=== PATIENT | female | born 1960 | race Caucasian/White ===

== ENCOUNTER 2020-09-07 09:17 | Outpatient (CLI) | payer OTHER, SELFPAY ==
--- NOTE | ~2020-09-07 | MM_ITS ---
EXAMINATION: MM screening sarahi BI w jaziel HISTORY: Screening mammogram TECHNIQUE: Craniocaudal and mediolateral oblique 3-D tomosynthesis images were obtained and synthetic 2-D images were generated. CAD analysis was submitted and interpreted. COMPARISON: No prior mammogram is available for comparison at this institution. BREAST PARENCHYMAL COMPOSITION: There are scattered areas of fibroglandular density. FINDINGS: RIGHT BREAST: Focal asymmetry is present in the posterior third of the upper outer quadrant of the br east. LEFT BREAST: There is no evidence of suspicious mass, calcification, or architectural distortion to s uggest malignancy. IMPRESSION: 1. Right breast focal asymmetry which may represent the patient's baseline however no comparison is c urrently available. 2. Comparison with prior mammograms is necessary. BI-RADS Category 0: Incomplete: Needs comparison with prior mammograms. Reviewed, dictated and finalized at location A. IMPRESSION: 1. Right breast focal asymmetry which may represent the patient's baseline gudino tani no comparison is currently available. 2. Comparison with prior mammograms is necessary. BI-RADS Category 0: Incomplete: Needs comparison with prior mammograms.
== END 2020-09-07 09:18 | disposition home or self-care (01) ==
LOC: ANHIMG 09:23
PROVIDERS: PCP Family Medicine Adolescent Medicine; Visit Provider Obstetrics & Gynecology
DX: Z12.31 Encounter for screening mammogram for malignant neoplasm of breast (principal); R92.8 Other abnormal and inconclusive findings on diagnostic imaging of breast
CPT/HCPCS: 77063; 77067

== ENCOUNTER 2021-12-16 07:47 | Outpatient (CLI) | payer OTHER, SELFPAY ==
--- NOTE | ~2021-12-16 | MM_ITS ---
EXAMINATION: MM screening sarahi BI w jaziel HISTORY: Screening TECHNIQUE: Craniocaudal and mediolateral oblique 3-D tomosynthesis images were obtained and synthetic 2-D images were generated. CAD analysis was submitted and interpreted. COMPARISON: Comparison to multiple prior studies sequentially, with oldest reviewed study dated 12/2016. BREAST PARENCHYMAL COMPOSITION: There are scattered areas of fibroglandular density. FINDINGS: Bilateral breast asymmetries are stable. There is no evidence of suspicious mass, calcifica tion, or architectural distortion to suggest malignancy in either breast. There has been no suspiciou s interval change. IMPRESSION: 1. No mammographic evidence of malignancy. 2. Recommend routine screening mammography in one year. BI-RADS Category 1: Negative Reviewed, dictated and finalized at location A.
== END 2021-12-16 07:48 | disposition home or self-care (01) ==
PROVIDERS: PCP Family Medicine Adolescent Medicine; Visit Provider Obstetrics & Gynecology
DX: Z12.31 Encounter for screening mammogram for malignant neoplasm of breast (principal)
CPT/HCPCS: 77063; 77067

== ENCOUNTER 2022-09-02 09:49 | Outpatient (CLI) | payer OTHER, SELFPAY ==
--- NOTE | ~2022-09-02 | US_ITS ---
Thyroid ultrasound. Clinical History: Thyroid nodule Findings: Real-time sonography of the thyroid gland was performed. The right lobe measures 4.9 x 2.4 x 2.8 cm. The left lobe measures 4.7 x 2.3 x 1.6 cm. The isthmus is 4 mm in AP diameter. There is a dominant right thyroid lobe nodule, solid, mildly hypoechoic, measuring 3.6 x 1.9 x 1.8 cm . There is also a mildly hypoechoic solid dominant left thyroid lobe nodule, measuring 2.9 x 1.4 x 2. 1 cm. Impression: 3.6 cm right thyroid lobe nodule, and 2.9 cm left thyroid lobe nodule. Both these lesions are consist ent with TR-4 lesions, and given size, FNA is recommended to establish a histologic diagnosis.. Reviewed, dictated and finalized at [facility]. Impression: 3.6 cm right thyroid lobe nodule, and 2.9 cm left thyroid lobe nodule. Both the se lesions are consistent with TR-4 lesions, and given size, FNA is recommended to establish a histologic diagnosis..
== END 2022-09-02 09:50 | disposition home or self-care (01) ==
PROVIDERS: PCP Family Medicine Adolescent Medicine; Visit Provider Internal Medicine
DX: E05.90 Thyrotoxicosis, unspecified without thyrotoxic crisis or storm (principal); E04.2 Nontoxic multinodular goiter
CPT/HCPCS: 76536

== ENCOUNTER 2022-09-19 06:43 | Outpatient (CLI) | payer OTHER, SELFPAY ==
--- NOTE | ~2022-09-19 | NM_ITS ---
EXAMINATION: NM thyroid scan w uptake DATE: 09/20/2022 09:10 INDICATION: Thyroid nodule. COMPARISON: Ultrasound 09/02/2022 TECHNIQUE: 0.493 mCi I-123 was administered orally. Scintigraphic images of the thyroid gland were o btained at 24 hours. Thyroid uptake was calculated by the technologist. FINDINGS: The thyroid uptake is 39% (normal 10-30%), with the right lobe measuring 23% uptake and the left 17%. There is no focal area of decreased or increased activity to suggest hypofunctioning or hyperfunctio spike nodule. IMPRESSION: 1. Increased 24-hour iodine uptake, consistent with hyperthyroidism. 2. The nodules seen on the prior ultrasound are isoactive. Ultrasound-guided fine-needle aspiration o f 2 nodules is recommended. Reviewed, dictated and finalized at location A. IMPRESSION: 1. Increased 24-hour iodine uptake, consistent with hyperthyroidism. 2. The nodules seen on the prior ultrasound are isoactive. Ultrasound-guided fi ne-needle aspiration of 2 nodules is recommended.
== END 2022-09-19 06:44 | disposition home or self-care (01) ==
LOC: ANHIMG 06:47
PROVIDERS: PCP Family Medicine Adolescent Medicine; Visit Provider Internal Medicine
DX: E04.1 Nontoxic single thyroid nodule (principal); R94.6 Abnormal results of thyroid function studies
CPT/HCPCS: 78014; A9516

== ENCOUNTER 2022-10-14 09:01 | Outpatient (CLI) | payer OTHER, SELFPAY ==
--- NOTE | ~2022-10-14 | US_ITS ---
EXAMINATION: 1. US FNA w image guidance 2. US FNA additional DATE: 10/14/2022 09:52 INDICATION: Thyroid nodules. TECHNIQUE: The procedure and its benefits and risks were discussed with the patient. Risks specifically discusse d included bleeding. The patient verbalized understanding of the risks and agreed to proceed. The nec k was prepped and draped in the usual sterile manner. 1% lidocaine was used for local anesthesia. 5 passes were made with a 25G needle into the lesion in right thyroid lobe under ultrasound guidance. 5 passes were made with a 25-gauge needle into the lesion in left thyroid lobe under ultrasound milena nce. There were no immediate complications. FINDINGS: Grayscale ultrasound images demonstrate needles advanced into a 3.6 cm nodule in right thyroid lobe f or biopsy. Grayscale ultrasound images demonstrate needles advanced into a 2.8 cm nodule in left thyr oid lobe for biopsy. IMPRESSION: 1. Ultrasound-guided fine needle aspiration of a right thyroid nodule. 2. Ultrasound-guided fine-needle aspiration of a left thyroid nodule. Reviewed, dictated and finalized at location A. IMPRESSION: 1. Ultrasound-guided fine needle aspiration of a right thyroid nodule. 2. Ultrasound-guided fine-needle aspiration of a left thyroid nodule.
== END 2022-10-14 09:02 | disposition home or self-care (01) ==
PROVIDERS: PCP Family Medicine Adolescent Medicine; Visit Provider Internal Medicine
DX: R91.8 Other nonspecific abnormal finding of lung field (principal)
CPT/HCPCS: 10005; 10006; 88173; 88305

== ENCOUNTER 2022-11-24 11:02 | Outpatient (CLI) | payer OTHER, SELFPAY ==
--- NOTE | 2022-11-24 11:24 | ECG_ITS ---
Measurements Intervals [place] Rate: 73 P: 51 OR: 194 QRS: 29 QRSD: 101 T: 52 QT: 375 QTc: 414 Interpretive Statements SINUS RHYTHM NO PREVIOUS ECG AVAILABLE FOR COMPARISON Electronically Signed On 11-24-2022 14:05:39 CDT by Bria Solares M.D.
== END 2022-11-24 11:03 | disposition home or self-care (01) ==
PROVIDERS: PCP Family Medicine Adolescent Medicine; Visit Provider Orthopaedic Surgery
DX: M17.11 Unilateral primary osteoarthritis, right knee (principal); I10 Essential (primary) hypertension
CPT/HCPCS: 93005

== ENCOUNTER 2023-01-04 14:00 | Outpatient (CLI) | payer OTHER, SELFPAY ==
[2023-01-04 15:18] LABS: INR 0.9; Partial Thromboplastin Time 28.6 SECONDS (22.3-36.8); Prothrombin Time 12.9 Seconds (11.1-14.7)
[2023-01-04 17:09] LABS: Urine Cotinine NEGATIVE
== END 2023-01-04 14:01 | disposition home or self-care (01) ==
LOC: ANHSURGERY 14:03
PROVIDERS: PCP Family Medicine Adolescent Medicine; Visit Provider Orthopaedic Surgery
DX: Z01.812 Encounter for preprocedural laboratory examination (principal); M17.11 Unilateral primary osteoarthritis, right knee
CPT/HCPCS: 80307; 83036; 85610; 85730; 87081

== ENCOUNTER 2023-01-18 00:45 | Day surgery (SDC) | payer OTHER, SELFPAY ==
[2023-01-04 08:12] VITALS: BMI 39.9
[2023-01-04 14:09] VITALS: BMI 39.9
--- NOTE | 2023-01-04 14:28 | PC.NURSE ---
Report to the Outpatient Waiting Room, entrance under the green pavilion located off [facility], at time __0600 on date __01/18/23 . Planned Procedure Time: _0730 . Time changes happen often and if your time is changed the preop area will call you the afternoon before. - You and your visitor will be asked to self-screen and do not enter if you have any COVID symptoms. - A mask is optional within the hospital at this time. Patients may have clear liquids (water, carbonated beverages, clear teas, apple juice) until 3 hours prior to surgery with a maximum of 20 ounces. - No food from midnight until time of surgery - Infants may have breast milk until 4 hours before surgery, formula 6 hours prior to surgery. - Children will be allowed to drink immediately following surgery. If applicable, please bring a bottle or sippy cup to assist with drinking. Juice, water, soda, and popsicles are readily available. For infants on formula, please bring formula the day of surgery. Pacifiers are allowed. Take the following medications with a SIP of water the morning of surgery: ___AMLODIPINE ATENOLOL,METHIMAZOLE,HYDROCODONE IF NEEDED FOR PAIN DO NOT STOP ANY OF YOUR OTHER PRESCRIPTION MEDICATIONS PRIOR TO SURGERY ?EXCEPT THE FOLLOWING Medications to discontinue per physician ___WEGOVY HOLD 10 DAYS PRE OP PER ANESTHESIA. LAST DOSE 01/02/23__ALL VITAMINS/SUPPLEMENTS 3 DAYS PRE OP.LAST DOSE 01/14/23 Please no make-up, nail argentine, hairspray, perfume, deodorant, or body powder the day of surgery. No jewelry (including any body piercings) or valuables the day of surgery, leave them at home. Please take a shower or bath the night before, or the morning of, surgery with an antibacterial soap. Wear comfortable, loose fitting clothing. Children are encouraged to wear pajamas. - Jewelry must be removed prior to entering the operating room. Rings and piercings that are not removed may be cut off. - The hospital will not accept responsibility for valuables. - Please leave all valuables, including medications, at home the day of surgery. If you are going home after surgery, a licensed ambulance driver must drive you home. - NO public transportation without another adult if you receive anesthesia. - We recommend that an adult stay with you for 24 hours following discharge. - We also recommend that you do not drive, make important decision, drink alcoholic beverages, or take any drugs that were not prescribed by your health care provider for at least 24 hours after your discharge time. For Pediatric surgeries, we recommend two adults accompany the child home. Follow any additional instructions given to you from your surgeon. If you or anyone in your household have experienced Covid symptoms in the past week, please notify your surgeon or the nurse liaison at the phone number below for possible testing. VERBAL AND WRITTEN instructions given to __PATIENT and asked if any additional questions and then verbalized understanding. Patient advised to call surgeon office or pre surgery nurse liaison [phone] if any additional questions.
[2023-01-04 14:43] VITALS: BP 150/74; PULSE 78; RESP 18; TEMP 36.7; O2SAT 98; BMI 39.9
[2023-01-18] VITALS (13 sets, daily range): BP systolic 111–167; BP diastolic 54–81; PULSE 66–99; RESP 12–18; TEMP 36.1–36.8; O2SAT 94–100
--- NOTE | ~2023-01-18 | XR_ITS ---
EXAMINATION: [id number] DATE: 01/18/2023 12:00 INDICATION: Total right knee arthroplasty. Postop. TECHNIQUE: 2 views of right knee were obtained. COMPARISON: Right knee radiographs 09/20/2022 FINDINGS: There is a total right knee arthroplasty without patellar resurfacing in near-anatomic alig nment. There has been resection of patellar osteophytes. There is gas in the joint and soft tissues, consistent with recent surgery. Anterior skin musa are noted. IMPRESSION: 1. Total right knee arthroplasty in near-anatomic alignment. Reviewed, dictated and finalized at location A.
[2023-01-18] MEDS: ACETAMINOPHEN 500 MG TABLET 1000 MG PO (06:20)
[2023-01-18] MEDS: LACTATED RINGERS 1,000 ML 30 ML IV CONT ×2 (06:35→11:50)
[2023-01-18] MEDS: TRANEXAMIC ACID 1,000MG/ISO100 1,000 MG/100 ML BAG 200 MG IVPB (07:00)
--- NOTE | 2023-01-18 07:16 | WPDANESEPPF ---
Anes - Initial Pre Proc Eval Procedure: Operation Date: 01/18/23 07:30 Proposed Procedures p Right Total Knee Arthroplasty - Luis Huerta MD Date/Time: 01/18/23 07:16 Surgeon: Luis Huerta MD Pre Op Diagnosis: right knee djd Patient Data Age: 62 Gender: F Height: 1.68 m Weight: 109.4 kg Last Vital Signs Temp 36.1 C L 01/18/23 06:56 Pulse 68 01/18/23 06:56 Resp 16 01/18/23 06:56 BP 167/71 H 01/18/23 06:56 Pulse Ox 98 01/18/23 06:56 O2 Del Method Room Air 01/18/23 06:56 Allergies Allergy/AdvReac Type Severity Reaction Status Date / Time Sulfa (Sulfonamide Allergy Mild RASH/SOB Verified 01/18/23 06:16 Antibiotics) levofloxacin Allergy Unknown Dyspnea / Verified 01/18/23 06:16 SOB sulfanilamide Allergy Unknown rash Verified 01/18/23 06:16 Home Medications Medication Instructions Recorded Confirmed Type ondansetron 4 mg disintegrating 4 mg PO Q8H PRN nausea and 06/29/22 01/18/23 Rx tablet vomiting #20 tabs furosemide 20 mg tablet 20 mg PO QAM PRN edema #30 tabs 07/14/22 01/18/23 Rx meclizine 25 mg tablet 25 mg PO QID PRN dizziness #30 tabs 10/03/22 01/18/23 Rx atenolol 100 mg tablet 100 mg PO DAILY #90 tabs 11/01/22 01/18/23 Rx magnesium 250 mg tablet 250 mg PO DAILY 11/22/22 01/18/23 History methimazole 5 mg tablet 2.5 mg PO DAILY #90 tabs 11/22/22 01/12/23 Rx amlodipine 2.5 mg tablet (Norvasc) 2.5 mg PO DAILY #90 tabs 12/19/22 01/18/23 Rx semaglutide (weight loss) 2.4 2.4 mg (0.75 mL) subcut WEEKLY #3 12/19/22 01/18/23 Rx mg/0.75 mL subcutaneous pen mL injector (Wegovy) lidocaine 4 % topical patch 1 patch topical TID PRN Pain 01/04/23 01/18/23 History (Lidocaine Pain Relief) melatonin 5 mg tablet 5 mg PO HS PRN Insomnia 01/04/23 01/18/23 History chlorhexidine gluconate 4 % 1 applic topical ONCE #237 mL 01/05/23 01/18/23 Rx topical liquid (Hibiclens) hydrocodone 5 mg-acetaminophen 325 1 tablet PO Q8H PRN pain #30 tabs 01/09/23 01/18/23 Rx mg tablet Patient hx anesthesia problems: none Family hx anesthesia problems: none Results Review: All pre-operative results and documents have been reviewed as part of the pre-operative evaluation. 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 Osteoarthritis of knees, bilateral Thyroid nodule Unilateral primary osteoarthritis, right knee Surgical History Surgical History History of breast lump/mass excision History of 1996 History of hernia repair 1999 History of hysterectomy 2004 History of total knee arthroplasty left, 02/2015 Family History Family History Other Diabetes mellitus Family history of arthritis Hypertension Social History Social History Smoking packs per day: 0.5 Smoking cigarettes per day: 10.0 Years smoked: 10 Smoking pack-years: 5.00 Smoking status: Former smoker Tobacco type: cigarettes Second hand tobacco smoke exposure: No Smoking end date: 06/12/87 Additional smoking assessment comments: DENIES ANY FORM OF TOBACCO USE Alcohol intake: current Drinks per week: 2 Alcohol use details: socially Substance use: current Other substance usage details: THC Gummys ocassionally Lack of Transportation: No Lack of Food: Never True Current Housing: I Have Housing Concerned About Future Housing: No Difficulty Paying Gas/Electric Bills: No Difficulty Paying for Meds: No Currently Unemployed: No Education: [employer]
--- NOTE | 2023-01-18 07:22 | WPDHPUPDATE1 ---
History and Physical Update Update Date/Time: 01/18/23 07:22 History and Physical has been reviewed, including an updated exam of the patient. There are NO changes in the patient's condition. Risks, benefits, and alternatives have been discussed and questions answered. Patient agrees to proceed with procedure.
--- NOTE | 2023-01-18 07:38 | WPDANESPNB ---
Anes - Peripheral Nerve Block Date/Time: 01/18/23 07:38 I have discussed with the patient/family/POA the placement of a peripheral nerve block for post-operative pain management, including associated risks, benefits, complications, and side effects. Alternative methods of post-operative analgesia were detailed. Questions were solicited and answers provided to the satisfaction of the patient/family/POA. Time-Out: A pre-procedural Time-Out was completed immediately before starting the procedure and confirmed: Patient Identification, Site, Procedure, Patient Position and the Availability of Requisite Equipment. Clinical Indications: Acute post-operative pain management requested by the operative surgeon. Nerve Block Insertion Note Anes-nerve block: adductor canal right Patient position: supine Skin prep: chlorhexidine Needle: 22 gauge, stimulating, insulated echogenic needle. Needle length: 80 mm Technique: ultrasound Technique comment: mid2mg [id number] Injectate: bupivacaine 0.5% with epi 5 mcg/ml (30ml) Observations: tolerated well Complications: none Procedure start time:: 726 Procedure end time:: 733
[2023-01-18] MEDS: ceFAZolin 2 GM/D5W 50 ML 2 GM/50 ML BAG IVPB ×3 (07:41→23:11)
[2023-01-18] MEDS: GENTAMICIN BONE CEMENT REFOBACIN 1 EACH TOPICAL (10:17)
[2023-01-18] MEDS: TRANEXAMIC ACID 1,000 MG/10 ML AMPUL 1000 MG IV PUSH (10:40)
--- NOTE | 2023-01-18 12:27 | P.OP_ITS ---
Procedure Note - Detailed Date of Procedure 01/18/23 Pre-op Diagnosis right knee djd Post-op Diagnosis Same Procedure Performed R TKA Surgeon Luis Huerta MD Anesthesia General Description of Procedure THE RIGHT KNEE WAS PREPPED AND DRAPED IN THE STERILE FASHION. THERE WAS A 20 DEGREE FLEXION CONTRACTURE AND 25 DEG VALGUS DEFORMITY. THERE WAS SIGNIFICANT LAXITY OVER THE MEDIAL SIDE WITH VALGUS STRESS. A MIDLINE SKIN INCISION WAS MADE. A MEDIAL PARAPATELLAR ARTHROTOMY WAS MADE. THE PATELLA WAS EVERTED. THERE WAS TRICOMPARTMENT DJD. THE DECISION WAS MADE TO USE A PS KNEE WITH STEMS TO ENSURE STABILITY. AN INTRAMEDULLARY MAX WAS PLACED IN THE FEMUR. A DISTAL FEMORAL CUT WAS MADE IN 5 DEGREES OF VALGUS REMOVING APPROXIMATELY 11 MM OF BONE FROM THE DISTAL FEMUR. THE FEMUR WAS SIZED TO 67.5. A 67.5 FEMORAL CUTTING BLOCK WAS PLACED IN 3 DEGREES OF EXTERNAL ROTATION AND IN ALIGNMENT WITH BRYCE'S LINE AND THE TRANSEPICONDYLAR AXIS. ANTERIOR POSTERIOR AND CHAMFER CUTS WERE MADE. A BOX CUT WAS MADE FOR THE PS KNEE AND THE FEMUR WAS REAMED TO ACCOMMODATE A FEMORAL STEM. THE CUTS WERE EXCELLENT. NEXT AN INTRAMEDULLARY CUTTING GUIDE WAS PLACED IN THE TIBIA. A TRANS TIBIAL CUT WAS MADE ALONG THE LONG AXIS OF THE TIBIA. APPROXIMATELY 10 MM OF BONE WAS REMOVED FROM THE HIGH SIDE OF THE TIBIA. THE TIBIA WAS THEN PLANED TO A SMOOTH SURFACE. A PUNCH AND REAMER WERE USED TO PREPARE THE TIBIA FOR A TIBIAL STEM. POSTERIOR FEMORAL OSTEOPHYTES WERE REMOVED FROM THE FEMORAL CONDYLES. A 75 TIBIAL TRIAL WITH STEM WAS PLACED IN ALIGNMENT WITH THE 1/3 MEDIAL ASPECT OF THE TIBIAL TUBERCLE. THEN A 67.5 FEMORAL TRIAL PS WITH STEM COMPONENT WAS PLACED. BOTH HAD EXCELLENT FITS. EVENTUALLY A 12 MM PS POLYETHYLENE TRIAL COMPONENT WAS PLACED. THE KNEE WAS TAKEN THROUGH A RANGE OF MOTION. THE KNEE CAME OUT TO FULL EXTENSION. THERE WAS NO ABNORMAL TILT TO THE PATELLA. THERE WAS GOOD A/P AND VARUS/VALGUS STABILITY. THERE WAS NO EXCESSIVE ROLL BACK WITH FLEXION. THE TRIAL COMPONENTS WERE REMOVED. THEN A 67.5 FEMORAL COMPONENT WITH AN 80 MM STEM AND 75 TIBIAL COMPONENT WITH A 12 PS POLYETHYLENE COMPONENT WERE CEMENTED INTO PLACE. ONCE THE CEMENT WAS HARD THE KNEE WAS TAKEN THROUGH A ROM AGAIN AND FOUND TO BE STABLE WITH NO PATELLA TILT NO EXCESSIVE ROLL BACK WITH FLEXION AND GOOD STAB ILITY WITH COMPLETE AND FULL EXTENSION. THE KNEE WAS IRRIGATED WITH STERILE BETADINE AND WATER FOR ABOUT 3 MINUTES. THE BLEEDERS WERE CAUTERIZED. THE ARTHROTOMY WAS REPAIRED WITH NUMBER 1 VICRYL. THE SUB CUTANEOUS LAYER WITH 2-0 VICRYL AND THE SKIN WITH ELADIO. THE WOUND WAS WASHED AND A STERILE DRESSING WAS APPLIED. PATIENT WAS EXTUBATED. Estimated Blood Loss -150.0 Pathology None sent Complications No immediate complications Condition Stable Disposition PACU
[2023-01-18] MEDS: KETOROLAC 30 MG/ML VIAL (*BKC) IV PUSH (12:28)
--- NOTE | 2023-01-18 12:40 | SUR.PHASEI ---
Vancomycin ended at 1230.
--- NOTE | 2023-01-18 13:50 | ADMGEN ---
This patient, Rhina Hall, was admitted to Medical Room 343-01. Patient/family oriented to hospital policies and general routines including ID bracelet, bed and alarms, visiting hours, pain management, procedures, bathroom and other care routines, personal items, smoking policy, room service/diet, and visiting hours. Information on how to activate the Rapid Response Team has been discussed. Patient/Family are encouraged to report perceived risks to care and to ask questions if they do not understand what they are told or what they should do.
[2023-01-18] MEDS: oxyCODONE/ACETAMINOPHEN (*CRX) 5-325 MG TABLET 2 TABLET PO (14:14)
[2023-01-18] MEDS: SODIUM CHLORIDE 0.9% IV 1,000 ML 125 ML IV CONT (14:15)
[2023-01-18] MEDS: KETOROLAC 15 MG/ML VIAL (*BKC) IV PUSH ×2 (17:44→23:11)
[2023-01-18] MEDS: SENNA/DOCUSATE SODIUM TABLET 2 TAB PO (17:44)
[2023-01-18] MEDS: ASPIRIN 325 MG ENTERIC TABLET PO (20:12)
[2023-01-18] MEDS: FAMOTIDINE 20 MG TABLET PO (20:12)
[2023-01-18] MEDS: oxyCODONE/ACETAMINOPHEN (*CRX) 5-325 MG TABLET 1 TABLET PO (21:44)
[2023-01-19 00:42] VITALS: BP 142/54; PULSE 79; RESP 16; TEMP 36.2; O2SAT 97
[2023-01-19 04:07] VITALS: BP 146/56; PULSE 90; RESP 16; TEMP 36.2; O2SAT 99
[2023-01-19 05:53] LABS: Basophils Percent Auto 0.2 % (0.2-1.2); Eosinophils Percent Auto 0.1 % (0-4.4); Hematocrit 33.2 % (37.0-47.0); Hemoglobin 10.5 g/dL (12.0-15.0); Immature Granulocyte Absolute 0.04 K/mm3 (0.00-0.031); Immature Granulocyte Percent A 0.3 % (0-0.5); Lymphocytes Absolute Auto 1.64 K/mm3 (0.9-3.2); Lymphocytes Percent Auto 13.7 % (18.3-44.2); Mean Corpuscular HGB Conc 31.6 g/dl (32-36); Mean Corpuscular Hemoglobin 28.2 pg (26-34); Mean Platelet Volume 8.8 fl (7.4-10.4); Monocytes Absolute Auto 1.6 K/mm3 (0.1-0.6); Neutrophils Absolute Auto 8.7 K/mm3 (1.3-6.7); Neutrophils Percent Auto 72.7 % (45.5-73.1); Platelet Count Result 201 k/mm3 (150-375); Red Blood Count 3.73 M/mm3 (4.2-5.4); Red Cell Distribution Width 12.1 % (11.5-14.5)
[2023-01-19] MEDS: KETOROLAC 15 MG/ML VIAL (*BKC) IV PUSH ×2 (06:01→12:03)
[2023-01-19] MEDS: oxyCODONE/ACETAMINOPHEN (*CRX) 5-325 MG TABLET 1 TABLET PO ×2 (06:02→15:02)
[2023-01-19] MEDS: ceFAZolin 2 GM/D5W 50 ML 2 GM/50 ML BAG IVPB (06:03)
[2023-01-19 06:05] LABS: Anion Gap 4 mmol/L (8-16); Blood Urea Nitrogen 19 mg/dL (7-17); Carbon Dioxide 28 mmol/L (22-30); Chloride 101 mmol/L (98-107); Estimated CRCL calculation 105 ml/min; Estimated Glomerular Filt Rate > 60; Glucose 121 mg/dL (65-110); Potassium 4.1 mmol/L (3.4-5.0); Sodium 133 mmol/L (137-145)
[2023-01-19 08:02] VITALS: PULSE 88
[2023-01-19] MEDS: amLODIPine BESYLATE 2.5 MG TABLET PO (08:02)
[2023-01-19] MEDS: atenoloL 50 MG TABLET 100 MG PO (08:02)
[2023-01-19] MEDS: polyethylene glycoL 3350 17 GM POWD.PACK PO (08:03)
[2023-01-19] MEDS: ASPIRIN 325 MG ENTERIC TABLET PO (08:03)
[2023-01-19] MEDS: SENNA/DOCUSATE SODIUM TABLET 2 TAB PO (08:03)
[2023-01-19] MEDS: FAMOTIDINE 20 MG TABLET PO (08:03)
[2023-01-19] MEDS: MAGNESIUM 13.5 MG TABLET (250 MG MAG GLUCONATE) PO (08:03)
[2023-01-19 09:11] VITALS: O2SAT 97
[2023-01-19 14:19] VITALS: BP 134/46; PULSE 85; RESP 18; TEMP 36.2; O2SAT 97
--- NOTE | 2023-01-19 15:08 | WPDANESPN ---
Anes - Prog Note Post-Op Date/Time: 01/19/23 15:08 Cardiovascular status: normal Respiratory status: normal Airway patency: baseline Mental status: baseline Post-Op hydration status: normal Vital Signs: Last Vital Signs Temp 36.2 C L 01/19/23 14:19 Pulse 85 01/19/23 14:19 Resp 18 01/19/23 14:19 BP 134/46 L 01/19/23 14:19 Pulse Ox 97 01/19/23 14:19 O2 Del Method Room Air 01/19/23 09:11 O2 Flow Rate 2 01/18/23 13:00 Pain Score (VAS): 08/19 I/O: Intake & Output 01/18/23 01/19/23 01/19/23 23:59 07:59 15:59 Intake Total 460 350 720 Balance 460 350 720 Laboratory Tests 01/19/23 05:47 01/19/23 05:47 01/19/23 05:47 WBC 12.0 H RBC 3.73 L Hgb 10.5 L Hct 33.2 L MCV 89.0 MCH 28.2 MCHC 31.6 L RDW 12.1 Plt Count 201 MPV 8.8 Immature Gran % (Auto) 0.3 Neut % (Auto) 72.7 Lymph % (Auto) 13.7 L Mcminn % (Auto) 13.0 H Eos % (Auto) 0.1 Baso % (Auto) 0.2 Lymph # (Auto) 1.64 Mcminn # (Auto) 1.6 H Eos # (Auto) 0.0 Baso # (Auto) 0.0 Abs Immat Gran (auto) 0.04 H Absolute Neuts (auto) 8.7 H Absolute Nucleated RBC 0.0 Nucleated RBC % 0.0 Sodium 133 L Potassium 4.1 Chloride 101 Carbon Dioxide 28 Anion Gap 4 L BUN 19 H Creatinine 0.60 L Estim Creat Clear Calc 105 Estimated GFR > 60 Glucose 121 H Calcium 8.0 L Post-procedural complaints: none Patient Feedback: Patient satisfied with anesthetic care.
--- NOTE | 2023-01-19 16:02 | PM.DS ---
DS: Admitting Diagnosis Discharge Date 01/19/23 Admitting Diagnosis right knee djd DS: Discharge Diagnosis Discharge Diagnosis (1) Unilateral primary osteoarthritis, right knee: Code(s): M17.11 - Unilateral primary osteoarthritis, right knee Status: Acute Assessment and Plan: pod 1 doing well. ok to dc home f/u in 3 weeks. asa for dvt prophylaxis DS: Summary Hospital Course Reason for hospitalization: R TKA Hospital Course: PATIENT WAS ADMITTED S/P TOTAL KNEE ARTHROPLASTY FOR POSTOPERATIVE MEDICAL MANAGEMENT, PAIN CONTROL AND MOBILIZATION WITH PHYSICAL AND OCCUPATIONAL THERAPY. THE PATIENT PROGRESSED WELL WITH PT/OT. LABS AND VITALS REMAINED STABLE AND PAIN WELL CONTROLLED. THE PATIENT HAS BEEN CLEARED TO BE DISCHARGED HOME. FOLLOW UP APPOINTMENT SCHEDULED. DISCHARGE INSTRUCTIONS DISCUSSED AT LENGTH WITH THE PATIENT. MEDICATIONS REVIEWED. 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, [place] INTACT NEG HOMANS SIGN, CALF AND THIGH SOFT DS: Data Data Completed and Pending Labs on day of discharge: Labs from last 24 hours 01/19/23 05:47 WBC 12.0 H RBC 3.73 L Hgb 10.5 L Hct 33.2 L MCV 89.0 MCH 28.2 MCHC 31.6 L RDW 12.1 Plt Count 201 MPV 8.8 Immature Gran % (Auto) 0.3 Neut % (Auto) 72.7 Lymph % (Auto) 13.7 L Faulkner % (Auto) 13.0 H Eos % (Auto) 0.1 Baso % (Auto) 0.2 Lymph # (Auto) 1.64 Faulkner # (Auto) 1.6 H Eos # (Auto) 0.0 Baso # (Auto) 0.0 Abs Immat Gran (auto) 0.04 H Absolute Neuts (auto) 8.7 H Absolute Nucleated RBC 0.0 Nucleated RBC % 0.0 Sodium 133 L Potassium 4.1 Chloride 101 Carbon Dioxide 28 Anion Gap 4 L BUN 19 H Creatinine 0.60 L Estim Creat Clear Calc 105 Estimated GFR > 60 Glucose 121 H Calcium 8.0 L Procedures/Treatments: R TKA Discharge Plan Discharge Patient Disposition: Home Health Service Discharge Instructions: Per Care Coordination Patient has been accepted to have [facility] for RN, PT, [phone]. Home Health is scheduled to see patient in her home on MondayJan 22 and will call to arrange a time for Home Health visit. YUNIOR HUERTA M.D. [facility] [address] [place] [address] POST OPERATIVE DISCHARGE INSTRUCTIONS FOLLOWING TOTAL KNEE REPLACEMENT SURGERY ? Your dressing will be changed prior to your discharge. You will be sent home with one additional dressing to be changed on post op day 7 by the home health RN. Your musa will be removed on the 14th day after surgery and steri-strips will be placed. Please practice good hand hygiene and do not touch your incision in order to prevent infection. ? You may shower with your dressing but do not submerge in a bath tub. ? Do not drive or operate machinery until you are released by Dr. Huerta. ? Do not walk without a walker for any reason until you are released by Dr. Huerta. ? Continue to use your ice machine. Please use a towel or pillow case to protect your skin before applying your ice machine. ? Do NOT place a pillow under your knee. You may use a pillow from the calf down if needed. This will prevent a flexion contracture postoperatively. ? You may begin use of your CPM machine at home if you have been given one pre-operatively. DO NOT USE WHILE YOU ARE SLEEPING. ? Your first post op appointment was sent to you via mail preoperatively. If you have any questions or are unable to make your appointment, please contact our office for scheduling questions. ? Your medications have been sent to your pharmacy. You have been sent home with pain medication. We have also sent you with a stool softener as narcotics can cause constipation. Please keep this in mind arlene
== END 2023-01-19 16:53 | disposition home health service (06) ==
LOC: ANHSURGERY 06:03 → ANH3MED 13:42
PROVIDERS: PCP Family Medicine Adolescent Medicine; Visit Provider Orthopaedic Surgery
PROC: (CPT 27447; principal; 2023-01-18 07:30)
DX: M17.11 Unilateral primary osteoarthritis, right knee (principal); G89.18 Other acute postprocedural pain; E04.1 Nontoxic single thyroid nodule; G47.00 Insomnia, unspecified; I10 Essential (primary) hypertension; Z87.891 Personal history of nicotine dependence; E66.9 Obesity, unspecified; Z68.38 Body mass index [BMI] 38.0-38.9, adult
CPT/HCPCS: 64447; 27447; 36415; 73560; 80048; 80307; 83036; 85025; 85610; 85730; 86850; 86900; 86901; 87081; 97110; 97116; 97161; 97165; 97530; 97535; A9270; C1713; C1776; J0171; J0690; J1100; J1170; J1885; J2250; J2270; J2405; J2704; J2795; J3010; J3370; J7030; J7120

== ENCOUNTER 2023-07-18 07:12 | Outpatient (CLI) | payer OTHER, SELFPAY ==
--- NOTE | ~2023-07-18 | MM_ITS ---
EXAMINATION: MM screening sarahi BI w jaziel HISTORY: Screening mammogram TECHNIQUE: Craniocaudal and mediolateral oblique 3-D tomosynthesis images were obtained and synthetic 2-D images were generated. CAD analysis was submitted and interpreted. COMPARISON: 12/16/2021, 09/07/2020 bilateral screening mammogram examinations BREAST PARENCHYMAL COMPOSITION: There are scattered areas of fibroglandular density. FINDINGS: There is no evidence of suspicious mass, calcification, or architectural distortion to sugg est malignancy in either breast. There has been no suspicious interval change. IMPRESSION: 1. No mammographic evidence of malignancy. 2. Recommend routine screening mammography in one year. BI-RADS Category 1: Negative Reviewed, dictated and finalized at location A. [facility]
== END 2023-07-18 07:13 | disposition home or self-care (01) ==
PROVIDERS: PCP Family Medicine Adolescent Medicine; Visit Provider Obstetrics & Gynecology
DX: Z12.31 Encounter for screening mammogram for malignant neoplasm of breast (principal)
CPT/HCPCS: 77063; 77067

== ENCOUNTER 2023-07-21 12:29 | Outpatient (CLI) | payer OTHER, SELFPAY ==
--- NOTE | ~2023-07-21 | US_ITS ---
EXAMINATION: US FNA w image guidance, US FNA additional DATE: 07/21/2023 14:28 INDICATION: Bilateral thyroid nodules TECHNIQUE: A time-out was performed to verify the patient's name, date of , and procedure to be performed . The procedure and its benefits and risks were discussed with the patient. Risks specifically discus sed included bleeding and infection. The patient understood the risks and agreed to proceed. The neck was prepped and draped in the usual sterile manner. Attention was first turned to the left thyroid n odule. 5 mL 1% lidocaine was used for local anesthesia. 8 passes were made with a 25G needle into th e lesion. Appropriate needle location was documented with continuous sonographic guidance. Attention was then turned to the right thyroid nodule. 5 mm 1% lidocaine was used for local anesthesia. 6 pass es were made with a 25G needle and 1 pass with a 23G needle into the lesion. Appropriate needle locat ion was recommended with continuous sonographic guidance. Sterile bandages were applied. There were no immediate complications. FINDINGS: Grayscale ultrasound images demonstrate biopsy needles advanced into first a 2.8 x 1.2 x 2.0 cm solid hypoechoic left thyroid nodule and subsequently a similar appearing 2 2.8 cm TI RADS 4 .8 x 2.0 x 1. 8 cm solid hypoechoic right thyroid nodule. IMPRESSION: 1. Successful ultrasound-guided fine needle aspiration of a 2.8 cm TI RADS 4 left thyroid nodule. 2. Successful ultrasound-guided fine-needle aspiration of a 3.6 cm TI RADS 4 right thyroid nodule. Reviewed, dictated and finalized at location A. 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 Successful ultrasound-guided fine needle aspiration of a 2.8 cm TI RADS 4 l eft thyroid nodule. 2. Successful ultrasound-guided fine-needle aspiration of a 3.6 cm TI RADS 4 ri ght thyroid nodule.
== END 2023-07-21 12:30 | disposition home or self-care (01) ==
PROVIDERS: PCP Family Medicine Adolescent Medicine; Visit Provider Internal Medicine
DX: E04.2 Nontoxic multinodular goiter (principal)
CPT/HCPCS: 10005; 10006; 88172; 88173; 88305

== ENCOUNTER 2024-08-14 08:47 | Outpatient (CLI) | payer OTHER, SELFPAY ==
--- NOTE | ~2024-08-14 | MM_ITS ---
EXAMINATION: MM screening sarahi BI w jaziel HISTORY: Screening mammogram TECHNIQUE: Craniocaudal and mediolateral oblique 3-D tomosynthesis images were obtained and synthetic 2-D images were generated. CAD analysis was submitted and interpreted. COMPARISON: 07/18/2023, 12/16/2021 BREAST PARENCHYMAL COMPOSITION:Not Dense. The breasts are almost entirely fatty FINDINGS: Stable area of distortion at the upper right breast. No suspicious mass, calcification, or architectural distortion are identified in either breast to suggest malignancy. There has been no kulwant picious interval change. IMPRESSION: No mammographic evidence of malignancy. Recommend routine screening mammography in one year. BI-RADS Category 2: Benign finding(s). Reviewed, dictated and finalized at location . NESS RISK CONSULTANT
--- OUTSIDE RECORDS SUMMARY | 2024-08-14 09:12 | XMS_ITS | Clinical Summary ---
Author Organization [facility] Address [address] [address] Care Team Providers Care Cyber Security Specialist Name Role Phone Jh Lacy MD Primary Care Prov ider Allergies Active Allergy Reactions Criticality Noted Date Comments Ciprofloxacin Rash Medium 03/11/2019 Levofloxacin Shortness of breath High 03/11/2019 Sulfa (Sulfonamide Antibiotics) Rash Medium 02/12 Medications atenolol (TENORMIN) 50 mg tablet 50 mg daily Active hydroCHLOROthiaz jamaal (HYDRODIURIL) 25 mg tablet Take 25 mg by mouth daily as needed 3 02/11/2019 Active Active Problems No known active problems Surgical History Surgery Date Site/Laterality Comments LA EXC CYST/ABERRANT BREAST TISSUE OPEN 1/> LESION LAPAROSCOPIC TOTAL HYSTERECTOMY 06/12/2006 - 06/11/2007 menorrhagia LIPOSUCTION TRUNK 12/11/2019 - 01/10/2020 LIPOSUCTION TRUNK 01/11/2020 - 02/10/2020 HERNIA REPAIR SECTION Medical History Medical History Date Comments Asthma Family History Medical History Relation Name Comments Heart disease Father Family history of cardiac disorder - (Added by TW Conv) Hypertension Father Family history of hypertension - (Added by TW Conv) Heart disease Mother Family history of cardiac disorder - (Added by TW Conv) Hypertension Mother Family history of hypertension - (Added by TW Conv) Relation Name Status Comments Father Mother Social History Tobacco Use Types Packs/Day Years Used Date Smoking Tobacco: Former Comments No Sex and Gender Information Value Date Recorded Sex Assigned at Not on file Legal Sex 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 Gender Identity Not on file Sexual Orientation Not on file Obstetrics History Para Term AB IAB SAB Ectopic Multiple Livin g Live Births 2 1 1 Date Outcome GA Total Labor Labor/2nd/3rd Weight Sex Type Anes PTL [place] A1 A5 Name Clin Term Last Filed Vital Signs Vital Sign Reading Time Taken Comments Blood Pressure 134/80 04/01/2020 2:47 PM CDT Pulse 0 11/18/2015 9:45 AM CDT Temperature - - Respiratory Rate - - Oxygen Saturation 18% 02/20/2015 3:51 PM CDT Inhaled Oxygen Concentration - - Weight 104.3 kg (230 lb) 04/01/2020 2:47 PM CDT Height 177.8 cm (5' 10 ) 04/01/2020 2:47 PM CDT Body Mass Index 33 04/01/2020 2:47 PM CDT Plan of Treatment [place] [address] [facility] [place] [address] Care Teams Cyber Security Specialist Relationship Specialty Start Date End Date Jh Lacy MD [address] [place] [address] PCP - General 12/19/16
--- OUTSIDE RECORDS SUMMARY | 2024-08-14 09:12 | XMS_ITS | Data Portability ---
Author Organization [employer], [facility] Address [address] [address] Care Team Providers Care Siebel Solution Architect Name Role Phone KEO MARTINEZ Primary Care Provider Unavail able Assessment No assessment recorded. Plan of Treatment Reminders Order Date Submit Date Provider Last Modified By Organization Details Last Modified Time Details Appointments None recorded. Lab CBC w/ auto diff 020 020 [email or web address] Not available 0 12:24:46 vitamin D, 25-hydrox y, total, serum 020 020 [email or web address] Not available 0 12:24:46 testoster one, free, serum 020 020 [email or web address] Not available 0 12:24:46 testoster one, total, serum 020 020 [email or web address] Not available 0 12:24:46 Referral None recorded. Procedures None recorded. Surgeries None recorded. Imaging XR, knee - room 10 020 020 [email or web address] Not available 0 12:24:46 Medication Orders None recorded. Patient TargetsNo targets recorded. Patient InstructionsNo instructions recorded. Reason for Referral None Reported. Problems No Known Problems Procedures Surgical History Date Name Laterality Status Provider Name and Address Organization Details Recorded Time Joint Replacement completed Martha Garcia [facility] 08/02/2019 10:32:35 Caesarean Section completed Martha Applauze 08/02/2019 10:32:35 Knee Surgery completed Martha TAVAREZ [facility], [facility] 08/02/2019 10:32:35 Lumpectomy completed Martha [facility]Z [facility] 08/02/2019 10:32:35 Colonoscopy completed Martha TAVAREZ [facility], [facility] 08/02/2019 10:32:35 Orthopedic Surgery completed [facility] 08/02/2019 10:32:35 Imaging Results None recorded. Procedure Notes None recorded. Medical Equipment None Reported. Allergies Allergen ID Allergen Name Allergen Category Reaction Reaction Severity Criticality Documentation Date Start Date Code Code System Note Provider Name and Address Organization Details Recorded Time 98314 Substance with sulfonami de structure and antibacte rial mechanism of action (substanc e) medicatio n Not available Not available Not available 08/02/2019 15333 8003 SNOMED Martha Garcia [facility] [facility], [facility] 0 10:32:06 Medications Name Sig Start Date Stop Date Status Note LastModified by Organization Details LastModified Time cyclobenzaprine 10 mg tablet active Not Available Not Available No t Available trazodone 50 mg tablet active Not Available Not Available Not Available azithromycin 250 mg tablet active Not Available Not Available Not Available indapamide 2.5 mg tablet active Not Available Not Available Not Available benzonatate 200 mg capsule active Not Available Not Available Not Available atenolol 25 mg tablet active Not Available Not Available Not Available tramadol 50 mg tablet active Not Available Not Available Not Available ciclopirox 8 % topical solution active Not Available Not Avail able Not Available trazodone 100 mg tablet active Not Available Not Available Not Available cephalexin 500 mg capsule active Not Available Not Available Not Available trazodone 150 mg tablet active Not Available Not Available Not Available oseltamivir 75 mg capsule active Not Available Not Available Not Available hydrochlorothiazide 25 mg tablet active Not Available Not Available Not Available atenolol 50 mg tablet active Not Available Not Available Not Available Vitals Date Recorded Body height Body mass index (BMI) Body weight Heart rate Systolic blood pressure Diastolic blood pressure Provider Name and Address Organization Details Last Updated DateTime 0 175.26 cm 35.4 kg/m2 366977. 17 g 63 /min 149 mm[Hg] 81 mm[Hg] Martha Jesus [facility], [employer] [facility] [employer] 0 10:31:37 Social History Question Answer Notes LastModified by Organizat ion Details LastModified Time Tobacco Smoking Status Former Smoker Martha Garcia jo, [employer] [facility], [facility] 08/02/2019 10:32:27 What Is Your Level Of Alcohol Consumption? Occasional Information not available 08/02/2019 Auto Related Injury? No Information not available 08/02/2019 What Is Your Level Of Caffeine Consumption? Moderate Information not available 08/02/2019 How Much Tobacco Do You Chew? None Information not available 08/02/2019 Diabetes No Information no t available 08/02/2019 What Type Of Diet Are You Following? REGULAR Information not available 08/02/2019 Which Illicit Or Recreational Drugs Have You Used? No Information not available 08/02/2019 High Blood Pressure Yes Information not available 08/02/2019 High Cholesterol No Informat ion not available 08/02/2019 Marital Status Informatio n not available 08/02/2019 General Stress Level Medium Information not available 08/02/2019 Work Related Injury? No Information not available 08/02/2019 Sex: Unknown Functional Status Question Answer Note LastModified by Organization D etails LastModified Time What is your exercise level? Moderate Information not available 08/02/2019 Mental Status None recorded. Family History Relationship Description Onset Age of this Age Resolved Age Notes LastModified by Organization Details LastModified Time Maternal Grandmother Osteoporosis [email or web address] Not available 0 08/02/2019 10:32:12 Mother Hypertensive disorder ssnofke Not available 2019 10:32:12 Mother Diabetes mellitus ssnofke Not available 2019 10:32:12 Mother Heart disease ssnofke Not available 2019 10:32:12 Mother Obesity ssnofke Not available 0 08/02/2019 10:32:12 Father Arthritis ssnofke Not available 08/02/2019 10:32:12 Father Obesity ssnofke Not available 0 08/02/2019 10:32:12 Father Hypertensive disorder ssnofke Not available 2019 10:32:12 Maternal Grandfather Osteoporosis ssnofke Not available 0 08/02/2019 10:32:12 Brother Arthritis ssnofke Not availabl e 08/02/2019 10:32:12 Brother Hypertensive disorder ssnofke Not available 2019 10:32:12 Brother Obesity ssnofke Not available 08/02/2019 10:32:12 Sister Arthritis ssnofke Not available 08/02/2019 10:32:12 Sister Alzheimer's disease ssnofke Not available 2019 10:32:12 Sister Diabetes mellitus ssnofke Not available 2019 10:32:12 Sister Obesity ssnofke Not available 0 08/02/2019 10:32:12 Medical History Condition Response HIV or AIDS N Coronary Artery Disease N Gout N Kidney Stones N Hyperthyroidism N Head Trauma/Injury N Blood Clots N COPD N Depression N Anxiety Disorder N Arthritis Y Cancer N Stroke N Leg or Foot Ulcers N Neck Injury N Rheumatoid Arthritis N Fibromyalgia N Headaches N Kidney Disease N Heart Problems N Migraines N Ulcers N Bleeding Disorder N Tuberculosis N Urinary Tract Infection N Back Problems N Asthma N Peripheral Vascular Disease N Sleep Disorder N GERD/Reflux N Hepatitis N Thyroid Cancer N Pulmonary Embolism N Other Cancer N Breast Cancer N Hernia N Lung Cancer N Hypothyroidism N Lung Disease N Pacemaker N Kidney Cancer N High Cholesterol N Liver Disease N Prostate Cancer N Thyroid Problems N Anemia N Multiple Sclerosis N Heart Attack (RI) N Diabetes N Seizures/Epilepsy N Diverticulitis N Lupus N Aneurysm N Heart Disease N Hypertension Y Osteoporosis N Gynecological HistoryNo gynecological history recorded. Obstetrics History GPAL:G 0 P 0 0 0 0 Past Encounters Encounter ID Performer Location Encounter Start Date Encounter Closed Date Diagnosis/Indication Diagnosis SNOMED-CT Code Diagnosis ICD10 Code Diagnosis Note [id number] [facility] [address] [place] [address] 08/02/2019 10:15:14 08/02/2019 12:23:44 Knee pain 69365876 M25.561 Screening procedure 2012 5006 Z13.9 Z01.812 R53.83 M89.9 M94.9 E55.9 Health Concerns Section Related Observation LastModified by Organization Detai ls LastModified Time None Recorded Concern Status LastModified by Organization Details LastModified Time None Recorded Advance Directives Directive None Recorded Payers Encounter Date Sequence Insurance Name Policy Number Policy Huff Covered Member ID Huff Member ID Guarantor Name 08/02/2019 2 DEREJE (DEREJE) Rhnia Hall [id number] Rhina Hall 08/02/2019 1 [facility] [id number] Rhina Hall [id number] Rhina Hall Notes Date Note Type Note Provider Name and Address Organization Details Recorded Time 08/02/2019 text/html Pain Score Pain scale from 0-10, 10 being the worst 6 Chief Complaint Why are you here today? L knee When did the problem start 2 or more years Pain scale from 0-10, 10 being the worst 6 Over time is the problem getting better or worse? Worse Pain Description Aching Sharp Time of day when pain is at its worst Evening What makes the pain better? Rest Have you seen another doctor for this? Yes Name of the doctor Vikas Peoples Previous Methods Tried to Manage Pain Anti-inflammatory Medications Exercise Ice Physical therapy Rest Has patient ever had injections? Yes What Kind Of Injection(s) Cortisone Date of last injection 01/10/2015 Imported from [facility] on 08/02/2019 [facility] 08:45:22 OBGyn Episode No OBEpisode recorded.
--- OUTSIDE RECORDS SUMMARY | 2024-08-14 09:12 | XMS_ITS | Referral Summary ---
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 [place] [address] Care Teams Lei Seller Relationship Specialty Start Date End Date Jh Lacy MD [address] [place] [address] PCP - General 12/19/16
--- OUTSIDE RECORDS SUMMARY | 2024-08-14 09:12 | XMS_ITS | Clinical Summary ---
Author Organization [facility] Address [address] [place] [address] Care Team Providers Care Assembler Finger Buffs Name Role Phone Jh Lacy MD Primary Care Provider [phone] Social History Tobacco Use Types Packs/Day Years Used Date Smoking Tobacco: Never Assessed Comments Unknown Sex and Gender Information Value Date Recorded Sex Assigned at Not on file Legal Sex Female 4:34 PM CDT Gender Identity Not on file Sexual Orientation Not on file Plan of Treatment Health Maintenance Due Date Last Done Comments Cervical Cancer Screening Pa p Smear (Age 30 to 64) Every 3 Years 1961 Colorectal Cancer Screening Colonoscopy (10 Years) 1961 Annual Physical 02/13/1964 Hepatitis C 1979 DTaP, Tdap and Td Vaccines ( 1 - Tdap) 02/13/1980 Cervical Cancer Screening Pa p with HPV Testing (Age 30 to 64) Every 5 Years 1991 Cervical Cancer Screening with HPV 1991 Mammogram Screening 2001 Zoster Vaccines (1 of 2) 2011 COVID-19 Vaccine (2023-2 5 season) 2024 Influenza Adult (#1) 2024 RSV Immunization or 60+ Years (1 - 1-dose 75+ series) 02/13/2036 Meningococcal B Vaccine Aged Out No l onger eligible based on patient's age to complete this topic Meningococcal Vaccine Aged Out No leana nat eligible based on patient's age to complete this topic Pneumococcal Vaccine: Pediat rics (0 to 5 Years) and At-Risk Patients (6 to 64 Years) Aged Out No longer eligible b ased on patient's age to complete this topic RSV Immunizations Under 20 Months Aged Out No longer eligible based on patient's age to complete this topic Care Teams Assembler Finger Buffs Relationship Specialty Start Date End Date Jh Lacy MD [address] [address] PCP - General 10/14/14
== END 2024-08-14 08:48 | disposition home or self-care (01) ==
PROVIDERS: PCP Family Medicine Adolescent Medicine; Visit Provider Obstetrics & Gynecology
DX: Z12.31 Encounter for screening mammogram for malignant neoplasm of breast (principal)
CPT/HCPCS: 77063; 77067